=== PATIENT | male | born 1970 | race Caucasian/White ===

== ENCOUNTER 2023-07-16 09:06 | Outpatient (AMB) | payer BC, SELFPAY ==
[2023-07-16 09:11] VITALS: BP 118/76; PULSE 82; TEMP 36.7; O2SAT 97; BMI 25.9
--- NOTE | 2023-07-16 09:11 | AM.OFFWIN_ITS ---
Intake Vital Signs 07/16/23 09:11 Height 5 ft 8 in Weight 77.337 kg BMI 25.9 BP 118/76 Blood Pressure Location Rt brachial Position Sitting Pulse 82 Pulse Source Pulse Oximeter Temp 98.0 F Temp Source Temporal Artery Scan Pulse Oximetry (%) 97 Oxygen Delivery Method Room Air Intake Visit Reasons: [employer], laceration to chin due to fall at home Intake Note: pt is here for c/o open wound on chin due to fall Patient Tobacco Use Status: Never used Tobacco Allergies No Known Allergies Allergy (Verified 07/16/23 09:12) Do you need a note to return to daycare/school/sports/work: Yes HPI HPI Comments History of Present Illness Details 53-year-old male presents with laceration to chin status post trip and fall last night. Hitting his chin on a cabinet w/ subsequent laceration. Not on thinners no lOC . Denies headache, vision changes, jaw pain, nausea, vomiting, abdominal pain, chest pain, shortness of breath. No preceding symptoms to fall PE 5 cm large laceration w. SQ involment to l side lower chin very deep. Concerns for complex laceraiton. Unlikely ich stroke. Very close to the mandible ? contusion vs fx vs dislocation of facial bones Internal sutures would be needed to repair this laceration I do not have these available here. Also patient would benefit from imaging. Patient to go to [facility] to get higher level of care and suture repair. [facility] Social History Patient Tobacco Use Status: Never used Tobacco Review of Systems Const Details: Constitutional : No Fever, No Chills, Cardiovascular : No Chest Pain, No SOB Respiratory : No Dyspnea Gastrointestinal : No abdominal pain Musculoskeletal : No Joint Swelling Skin : No rash, positive skin laceration Neuro : No Weakness, No Numbness Psych : No SI/HI All systems reviewed & are unremarkable except as noted in HPI and below Physical Exam Vital Signs: Last Vital Signs Temp 98.0 F 07/16/23 09:11 Pulse 82 07/16/23 09:11 BP 118/76 07/16/23 09:11 Pulse Ox 97 07/16/23 09:11 Oxygen Delivery Method Room Air 07/16/23 09:11 BMI result Body Mass Index 25.9 vss Appearance: Alert.? Oriented X3.? No acute distress.? Head: Normocephalic, atraumatic, no step-offs or deformities Eyes: Pupils equal, round and reactive to light.? Neck: Normal inspection.? Neck supple.? CVS: Normal heart rate and rhythm.? Pulses normal.? Respiratory: No respiratory distress.? Skin: Skin warm and dry.? Normal skin color.? Normal skin turgor.?5 cm large laceration w. SQ involment to l side lower chin very deep. Extremities: 5/5 strength to bilateral upper and lower extremities Neuro: Oriented X 3.? No motor deficit.? No sensory deficit. CN 2-12 intact Assessment & Plan Assessment & Plan (1) Laceration of chin: Code(s): S01.81XA - Laceration without foreign body of other part of head, initial encounter Plan Take your medications as prescribed. If you were prescribed antibiotics today, it is important that you take your medication to their entirety, do not skip any doses, do not finish them early. Follow-up with your primary care provider this week. Return to the emergency department with new or worsening symptoms. In case of emergency call 911 Coding Level of Care Code Est Pt Level 3 (84016) Diagnoses Laceration of chin S01.81XA
== END 2023-07-16 10:53 | disposition home or self-care (01) ==
PROVIDERS: Visit Provider Physician Assistant
DX: S01.81XA Laceration without foreign body of other part of head, initial encounter (principal)
CPT/HCPCS: 99213

== ENCOUNTER 2023-07-23 09:09 | Outpatient (AMB) | payer BC, SELFPAY ==
--- NOTE | 2023-07-23 09:11 | MHC.OFFWIV ---
Intake Vital Signs 07/23/23 09:25 Height 5 ft 8 in BP 112/60 Blood Pressure Location Lt brachial Position Sitting Pulse 116 H Pulse Source Pulse Oximeter Temp 98.1 F Temp Source Temporal Artery Scan Pulse Oximetry (%) 97 Oxygen Delivery Method Room Air Intake Visit Reasons: EP rash on forehead spreading [id number] Intake Note: Pt is here requesting to get have nine stitches removed. Pt also states he injured his head and had a bump for two days and it has now spread. Patient Tobacco Use Status: Never used Tobacco Allergies Penicillins Allergy (Unknown, Verified 07/26/23 09:40) Unknown Do you need a note to return to daycare/school/sports/work: No HPI HPI Comments History of Present Illness Details Patient is a 53-year-old presents today for suture removal and rash to face He initially was seen urgent 1 week ago after a fall was sent to the emergency department for evaluation He had narrowing sutures placed on the inferior aspect of left chin He was also noted to have a facial abrasion to the left side of his forehead which was scabbed He states that the forehead scalp soft tissue days ago knees had increased redness and slight discharge from the area Was using a topical antifungal without relief; clotrimazole He denies any dizziness, lightheadedness, headaches visual changes He was told to have the sutures removed this weekend but decided to come in today on day 7 No other complaints like fever, chills, pain, drainage PFSH Social History Patient Tobacco Use Status: Never used Tobacco Advance Directives: No Advance Directives Information Provided: Yes Review of Systems Const Denies body aches, Denies chills and Denies fever(s) Eyes Denies blurry vision and Denies diplopia ENT Denies nasal trauma Musc Denies abnormal gait, Denies back pain and Denies myalgias Skin/Breast Reports erythema (L side forehead) and Reports other (sutures L side inferior chin) Neuro Denies abnormal gait Physical Exam Vital Signs: Last Vital Signs Temp 98.1 F 07/23/23 09:25 Pulse 116 H 07/23/23 09:25 BP 112/60 07/23/23 09:25 Pulse Ox 97 07/23/23 09:25 Oxygen Delivery Method Room Air 07/23/23 09:25 General: Non-toxic, NAD. Speaking full sentences. Skin: Warm dry throughout. L side anterior forehead he has circular patch of healing skin with slight erythema. No area of drainage, induration or fluctuance. L inferior aspect of chin has [address] There is slight wound dehiscence in middle/inferior aspect whch appears to still be healing. Minimal erythema without drainage or pain with palpation. Eye: EOMI Respiratory: No tachypnea Cardiac: RRR. MSK: Full ROM extremities. Neurology: A/O No aphasia or facial droop. Gait without abnormality Psych: Good mood and affect Assessment & Plan Assessment & Plan (1) Cellulitis: Code(s): L03.90 - Cellulitis, unspecified Qualifiers: Site of cellulitis: face Qualified Code(s): L03.211 - Cellulitis of face Plan: Area on L side forehead appears to be healing but since scab fell off and + redness, will cover with doxy Doxy also will help chin region heal (2) Visit for suture removal: Comment: verbal consent obtained. 4 sutures removed from L chin [address] and do not want to remove due to healing still and concern dehiscence. Code(s): Z48.02 - Encounter for removal of sutures Plan: Doxy with food as prescribed Come back friday am for removal of remaining Keep area clean and dry Avoid picking Call with concerns Medications: New doxycycline hyclate 100 mg PO BID 14 caps 0RF L03.90 - Cellulitis, unspecified Coding Level of Care Code Est Pt Level 3 (79956) Diagnoses Cellulitis of face L03. Site of cellulitis: face Visit for suture removal Z48.02
[2023-07-23 09:25] VITALS: BP 112/60; PULSE 116; TEMP 36.7; O2SAT 97
== END 2023-07-23 10:40 | disposition home or self-care (01) ==
PROVIDERS: Visit Provider Physician Assistant
DX: L03.211 Cellulitis of face (principal); Z48.02 Encounter for removal of sutures
CPT/HCPCS: 99213

== ENCOUNTER 2023-07-26 09:11 | Outpatient (AMB) | payer BC, SELFPAY ==
--- NOTE | 2023-07-26 09:12 | MHC.OFFWIV ---
Intake Intake Visit Reasons: EP allergic reaction to medcation face swollen! Patient Tobacco Use Status: Never used Tobacco Allergies No Known Allergies Allergy (Verified 07/23/23 09:12) HPI HPI Comments History of Present Illness Details 926 53-year-old male presents with concerns that his chin lacerations not healing, there has been yellow/green discharge from the area. Patient started on doxycycline on Friday, he took a few doses however he is noted periorbital edema, he does not have respiratory symptoms or difficulty breathing however he reports his eyes rapidly worsening. He initially sustained these injuries status post trip and fall into a cabinet on 07/16/2023, I advised him to go to hospital for repair of complicated laceration he states that the only put in superficial sutures at that time there is exposed subcu tissue very deep and concerns that the bone could have been exposed. He went to the hospital was not discharged with antibiotics and came back here on 07/23/2023 and started on doxycycline. He denies chest pain shortness of breath, nausea, vomiting, abdominal pain., difficulty with eye movement On exam evident bilateral periorbital edema, abrasion to forehead and nonhealing laceration with dehiscence to the chin. Concerns for infected laceration versus abscess versus possible osteomyelitis. Bilateral eye swelling is concerning for drug reaction. No signs of airway compromise no need for EpiPen at this time. I I did have a long conversation with patient and he tells me that he does not mind going to the hospital to be evaluated. I did discuss this case with Vickie MUNOZ [facility] Social History Patient Tobacco Use Status: Never used Tobacco Review of Systems Const Details: Constitutional : No Weight loss, No Fever, No Chills, No Fatigue, No Malaise ENT/Mouth : No sore throat, No Rhinorrhea Eyes: No Eye Pain, No Swelling, No Redness Cardiovascular : No Chest Pain, No SOB, No Dyspnea on Exertion, No Orthopnea, No Edema, No Palpitations Respiratory : No Cough, No Sputum, No Wheezing Gastrointestinal : No Nausea, No Vomiting, No Diarrhea, No Constipation, No abdominal Pain, No Hematochezia, No Melena Genitourinary : No Dysuria, No Urinary Frequency, No Hematuria, Musculoskeletal : No joint pain, No Myalgias, No Joint Swelling Skin : No Skin Lesions, No rash Neuro : No Weakness, No Numbness, No Dizziness, No Headache Psych : No Anxiety/Panic, No Depression All other systems reviewed and are negative All systems reviewed & are unremarkable except as noted in HPI and below Physical Exam Vital Signs: vss Appearance: Alert.? Oriented X3.? No acute distress.? Head: Normocephalic, atraumatic, no step-offs or deformities Eyes: Pupils equal, round and reactive to light.? Bilateral periorbital edema no pain with extraocular movements. Surrounding erythema ENT: Pharynx normal.? Neck: Normal inspection.? Neck supple.? CVS: Normal heart rate and rhythm.? Pulses normal.? Respiratory: No respiratory distress.? Breath sounds normal.? Abdomen: Soft and nontender.? Skin: Skin warm and dry.? Normal skin color.? Normal skin turgor.?+ large poorly healing skin laceration w/ purulence Extremities: No lower extremity edema.? No calf ttp. 5/5 strength to bilateral upper and lower extremities Neuro: Oriented X 3.? No motor deficit.? No sensory deficit. CN 2-12 intact Assessment & Plan Assessment & Plan (1) Periorbital edema of both eyes: Code(s): R60.0 - Localized edema (2) Allergic reaction: Code(s): T78.40XA - Allergy, unspecified, initial encounter Plan Patient to go [place] [facility]. Spoke to Vickie CATALAN Coding Level of Care Code Est Pt Level 3 (38419) Diagnoses Periorbital edema of both eyes R60.0 Allergic reaction T78.40XA
== END 2023-07-26 11:10 | disposition home or self-care (01) ==
PROVIDERS: Visit Provider Physician Assistant
DX: R60.0 Localized edema (principal); T78.40XA Allergy, unspecified, initial encounter
CPT/HCPCS: 99213

== ENCOUNTER 2023-07-26 09:37 | Emergency (ER) | payer BC, SELFPAY ==
--- NOTE | ~2023-07-26 | CT_ITS ---
EXAMINATION: CT FACIAL BONES WITH CONTRAST CLINICAL INFORMATION: wound dehiscence COMPARISON: None available. TECHNIQUE: Multidetector CT acquisition of the maxillofacial region is obtained after administration of 85 mL Omnipaque 350. Multiplanar reformats are acquired and utilized for image interpretation. This CT examination was performed using dose optimization techniques as appropriate, variously including the following: *Automated exposure control *Adjustment of mA and/or kV according to patient size (this includes techniques or standardized protocols for targeted exams where dose is matched to indication/reason for exam; i.e. extremities or head) *Use of iterative reconstruction technique DLP: 627.02 mGy-cm FINDINGS: There is diffuse skin thickening involving the neck anteriorly from the lateral the supraclinoid region and extending superiorly to the level of the mandible. There is a tiny focus of irregularity/defect involving the skin in the submental region, just left to midline (series 2, image 44 of 353). Diffuse inflammatory stranding is seen within the anterior neck subcutaneous tissues in these regions. There is also mild inflammatory stranding involving the premaxillary soft tissues with associated mild skin thickening. No discrete drainable tissue fluid collection. No erosive osseous changes. No pathologically enlarged lymph node in the neck. No periapical disease identified. Mucosal thickening of the bilateral maxillary sinuses with atelectasis of the left maxillary sinus. The remaining paranasal sinuses are clear. The major sinus drainage pathways remain patent. No polypoid soft tissue within the nasal cavities. Mild leftward deviation of the nasal septum. The fovea ethmoidalis and olfactory grooves are symmetric in depth. No orbital pathology. Partial opacification of the right mastoid air cells. The left mastoid air cells and bilateral middle air cavities are clear. CT/CT facial bones w IV con IMPRESSION: Diffuse skin thickening and inflammatory stranding involving the anterior neck and premaxillary soft tissues with suggestion of diffuse cellulitis. Tiny focus of irregularity/defect involving the skin in the submental region, just left to midline likely represent small open wound. No discrete drainable tissue fluid collection. No erosive osseous changes.
[2023-07-26 09:41] VITALS: BP 126/80; PULSE 90; RESP 18; TEMP 36.6; O2SAT 99; BMI 23.9
[2023-07-26 10:00] VITALS: PULSE 77; O2SAT 98
--- NOTE | 2023-07-26 10:04 | ED_ITS ---
<Statement entered by Santy Michael MD - 07/26/23 18:11> I saw this patient with the physician training and development assistant and agree with the plan. HPI - Allergic Reaction General Chief complaint: Allergic Reaction Stated complaint: allergy reaction Time Seen by Provider: 07/26/23 09:58 Source: patient and RN notes reviewed Mode of arrival: ambulatory Limitations: no limitations History of Present Illness HPI narrative: This is a 53-year-old male, with no known medical problems, presenting to the emergency department with facial swelling. On July 16, 2023, patient had a tripped and fell, striking his chin on a cabinet. He had a large laceration on his chin with his mandible exposed. He was evaluated at [place] urgent care where he was sent to [facility] where he had multiple sutures placed. Patient then returned to the urgent care on July 23 due to increased drainage from his laceration. He was placed on doxycycline 2 days ago. He states that last night he noticed that he had some swelling around both of his eyes, as well as a rash throughout his body. He states that he woke up this morning with worsening bilateral eye swelling and increased yellow drainage expressed from the wound. He has had no fevers or chills. He is otherwise feeling well. He also has an abrasion noted to his head - reports that this is from a trip and fall several weeks ago. No other complaints or concerns at this time. MD complaint: allergic reaction and facial swelling Exposure: medication Symptoms: itching and facial swelling Treatment prior to arrival: none Previous Allergic Reaction History: none Related Data Previous Rx's Medication Instructions Recorded doxycycline hyclate 100 mg capsule 100 mg PO BID #14 caps 07/23/23 prednisone 20 mg tablet 40 mg (2 x 20 mg) PO DAILY 5 days 07/26/23 #10 tabs sulfamethoxazole 800 2 tab PO BID 7 days #28 tabs 07/26/23 mg-trimethoprim 160 mg tablet (Bactrim DS) Allergies Allergy/AdvReac Type Severity Reaction Status Date / Time Penicillins Allergy Unknown Unknown Verified 07/26/23 09:40 Review of Systems 2 Review of Systems: Yes all other systems are reviewed and are negative Constitutional: Constitutional: Reports as per [facility] Social History Social History Patient Tobacco Use Status: Never used Tobacco Advance Directives: No Advance Directives Information Provided: Yes Physical Exam ED Vital Signs: Vital Signs - 24 hr 07/26/23 09:41 07/26/23 10:00 07/26/23 14:38 Temperature 97.8 F 98.4 F Pulse Rate 90 77 84 Respiratory Rate 18 20 Blood Pressure 126/80 141/94 H Pulse Oximetry 99 98 96 Oxygen Delivery Method Room Air Room Air Room Air BMI result Body Mass Index 23.9 Const General: cooperative, comfortable and no acute distress Orientation/consciousness: patient oriented x3 Limitations: no limitations HENMT Other: L inferior aspect of chin with ?[address], however appears to not holding wound together. There is slight wound dehiscence in middle/inferior aspect which appears to still be healing. Minimal purulence expressed from wound. Minimal erythema without drainage or pain with palpation. Forehead with ccrusting noted with superficial abrasion noted. Head: Yes normal to inspection, Yes normocephalic and Yes atraumatic Ears: hearing grossly normal bilaterally General nose exam: Normal external nose present Face and sinus: Yes normal facial exam Mouth: Normal oral and palatal mucosa present, oropharynx normal and moist mucous membranes Throat: Yes posterior oropharynx normal Eyes General: appearance normal, both eyes and all related structures Eyelids: Yes eyelids normal Conjunctivae: conjunctivae normal Sclerae: sclerae normal Pupils: Equal, round and reactive pupils present EOM: EOMs intact bilaterally Neck Neck: Yes normal visual inspection, Yes full ROM and Yes no lymphadenopathy Lymphatic: no lymphadenopathy noted Chest Chest palpation & inspection: normal inspection of the chest Resp Effort & Inspection: normal respiratory effort and able to speak in complete sentences Auscultation: clear to auscultation bilaterally, no crackles, no rales, no rhonchi and no wheezes Cardio Rate: regular rate Rhythm: regular rhythm Heart sounds: S1 normal heart sound present and S2 normal heart sound present GI Inspection: Yes normal to inspection Skin General skin exam: no rashes or lesions noted Trauma: no lacerations or abrasions Wounds: no wounds Neuro General: patient oriented x3 and moves all extremities Cranial nerves: Yes Equal, round and reactive pupils present Extrem General: Yes normal to inspection Right upper extremity: normal to inspection Left upper extremity: normal to inspection Right lower extremity: normal to inspection Left lower extremity: normal to inspection Course Reevaluation(s) Reevaluation #1: Patient re-evaluated, facial swelling does appear to be improved. Lactic acid 1.7, no leukocytosis, stable H&H, chemistry within normal limits, AST ALT mildly elevated, a CT still pending at this time. Time: 12:22 Reevaluation #2: CT returns revealing Diffuse skin thickening and inflammatory stranding involving the anterior neck and premaxillary soft tissues with suggestion of diffuse cellulitis. Tiny focus of irregularity/defect involving the skin in the submental region, just left to midline likely represent small open wound. No discrete drainable tissue fluid collection. No erosive osseous changes. Discussed with my attending physician, Dr. Michael, who recommends removing sutures that are no longer holding wound in placce and to place pt on Bactrim and prednisone. Discussed with pt. given return precautions. Pt understands and agrees with plan. stable for d/c. Medications Administered Discontinued Medications Generic Name Dose Route Start Last Admin Trade Name Freq PRN Reason Stop Dose Admin Diphenhydramine HCl 50 mg 07/26/23 10:02 07/26/23 10:58 Diphenhydramine Hcl 50 Mg/Ml Vial IVPUSH 07/26/23 10:03 50 mg ONCE ONE Administration Famotidine 20 mg 07/26/23 10:02 07/26/23 10:58 Famotidine/Pf 20 Mg/2 Ml Vial IVPUSH 07/26/23 10:03 20 mg ONCE ONE Administration Iohexol 85 ml 07/26/23 12:08 07/26/23 12:08 Iohexol 350 Mg/Ml 100 Ml Infus..Btl IV 07/26/23 12:09 85 ml ONCE ONE Administration Methylprednisolone Sodium Succinate 125 mg 07/26/23 10:02 07/26/23 10:58 Methylprednisolone Sod Succ 125 Mg/2 Ml Vial IVPUSH 07/26/23 10:03 125 mg ONCE ONE Administration Medical Decision Making Medical Decision Making MDM Narrative: This is a 53-year-old male, with no known medical problems, presenting to the emergency department complaints of facial swelling which started yesterday. On arrival, vital signs within normal limits. Patient has moderate lindy orbital edema and erythema. He also has scaling, redness, and crusting to his forehead. Lungs are clear to auscultation bilaterally, patient is nontoxic appearing under no acute respiratory distress. Given patient has laceration to his chin with purulence drainage, and mandible was exposed and was not on antibiotics upon his departure from [facility], concerning for osteomyelitis, will obtain CT maxillofacial for rule out. Patient states that he has a unknown allergy to penicillins, was told when he was a baby, unsure of the reaction. No other known drug allergies. Plan: Labs, IV Benadryl, Pepcid, Solu-Medrol, CT facial bones with IV contrast Differential Diagnosis Differential Diagnoses: The differential diagnosis associated with the presentation includes Angioedema, anaphylaxis, allergic reaction Admission/Observation Consideration of admission/observation: Escalation of care including admission/observation considered Lab Data MDM Lab Attestation statement: I reviewed the patient's lab results. see course 07/26/23 11:00 07/26/23 11:00 Labs: Lab Results 07/26/23 Range/Units 11:00 WBC 6.7 (4.8-10.8) X10*3/uL RBC 4.76 (4.60-5.80) X10*6/uL Hgb 14.8 (14.0-18.0) g/dl Hct 44.3 (42.0-52.0) % MCV 93.1 (80.0-98.0) fL MCH 31.1 (27.0-33.0) pg MCHC 33.4 (31.0-36.0) g/dl RDW 12.7 (11.0-16.0) % Plt Count 241 (160-400) X10*3/uL MPV 10.2 (9.4-12.4) fL Immature Gran % (Auto) 0.4 (0.0-0.4) % Neut % (Auto) 68.1 (45-73) % Lymph % (Auto) 17.1 L (20-40) % [place] % (Auto) 8.6 (2-11) % Eos % (Auto) 5.1 H (0-4) % Baso % (Auto) 0.7 (0-2) % Lymph # (Auto) 1.2 (1.2-4.9) X10*3/uL [place] # (Auto) 0.6 (0.1-1.2) X10*3/uL Eos # (Auto) 0.3 (0.0-0.4) X10*3/uL Baso # (Auto) 0.1 (0.0-0.2) X10*3/uL Abs Immat Gran (auto) 0.03 (0.00-0.03) X10*3/uL Absolute Neuts (auto) 4.6 (2.0-8.3) x10*3/uL Absolute Nucleated RBC 0.000 (0.0-0.012) X10*3/uL Nucleated RBC % (auto) 0.0 (0.0-0.2) /100WBC Sodium 142 (135-145) mmol/L Potassium 4.0 (3.3-5.1) mmol/L Chloride 108 (96-108) mmol/L Carbon Dioxide 25 (22-29) mmol/L Anion Gap 13 (12-20) BUN 15 (9-16) mg/dL Creatinine 0.87 (0.5-1.4) mg/dL Estim Creat Clear Calc 107.7 Estimated GFR > 60 Random Glucose 102 (60-115) mg/dL Lactic Acid 1.7 (0.5-2.0) mmol/L Calcium 9.8 (8.4-10.2) mg/dL Total Bilirubin 0.4 (0.0-1.0) mg/dL Direct Bilirubin 0.1 (0.0-0.5) mg/dL AST 68 H (5-37) U/L ALT 79 H (0-40) U/L Alkaline Phosphatase 55 (39-117) U/L Total Protein 7.4 (6.5-8.0) g/dL Albumin 4.3 (3.5-5.0) g/dL Radiology Impression Discussion of test interpretation with radiology: I have reviewed the radiologist's reading. Radiologist Impression: Diffuse skin thickening and inflammatory stranding involving the anterior neck and premaxillary soft tissues with suggestion of diffuse cellulitis. Tiny focus of irregularity/defect involving the skin in the submental region, just left to midline likely represent small open wound. No discrete drainable tissue fluid collection. No erosive osseous changes. Discharge Plan Discharge Clinical Impression: Cellulitis, Allergic reaction Patient Disposition: Home, Self-Care Instructions: Cellulitis (ED) Additional Instructions: Your seen in the emergency department after having a possible allergic reaction to doxycycline. You need to continue taking antibiotics to treat this skin infection you have. Finish the entire course even if your feeling better. I also am prescribing you prednisone, this is a steroid. Please start this tomorrow as you already received a dose of a similar medication today. You may also take Benadryl as directed as needed for symptoms and swelling. We removed your sutures today. Your labs are reassuring, your CT does show evidence of a skin infection therefore it is very important for you to take the antibiotic as prescribed. Watch for any new or worsening symptoms including but not limited to fevers, chills, redness, swelling. If any of these occur, or you develop any chest pain or shortness of breath, please return for re-evaluation. Prescriptions: New sulfamethoxazole-trimethoprim [Bactrim DS] 800-160 mg tablet 2 tab PO BID 7 Days Qty: 28 0RF prednisone 20 mg tablet 40 mg PO DAILY 5 Days Qty: 10 0RF No Action doxycycline hyclate 100 mg capsule 100 mg PO BID Qty: 14 0RF Interventions: ED Discharge Assessment Last Done: 07/26/23 15:27 Discharge Date/Time: 07/26/23 15:27
[2023-07-26] MEDS: methylPREDNISolone Sod Succ 125 MG/2 ML VIAL IVPUSH (10:58)
[2023-07-26] MEDS: diphenhydrAMINE HCL 50 MG/ML VIAL IVPUSH (10:58)
[2023-07-26] MEDS: Famotidine/PF 20 MG/2 ML VIAL IVPUSH (10:58)
[2023-07-26 11:07] LABS: MANUAL DIFF FLAG NO
[2023-07-26 11:08] LABS: Basophils Absolute Auto 0.1 X10*3/uL (0.0-0.2); Basophils Percent Auto 0.7 % (0-2); Eosinophils Absolute Auto 0.3 X10*3/uL (0.0-0.4); Eosinophils Percent Auto 5.1 % (0-4); Hematocrit 44.3 % (42.0-52.0); Hemoglobin 14.8 g/dl (14.0-18.0); Imm Gran Abs Auto 0.03 X10*3/uL (0.00-0.03); Imm Gran Pct Auto 0.4 % (0.0-0.4); Lymphocytes Absolute Auto 1.2 X10*3/uL (1.2-4.9); Lymphocytes Percent Auto 17.1 % (20-40); Mean Corpuscular HGB Conc 33.4 g/dl (31.0-36.0); Mean Corpuscular Hemoglobin 31.1 pg (27.0-33.0); Mean Corpuscular Volume 93.1 fL (80.0-98.0); Mean Platelet Volume 10.2 fL (9.4-12.4); Monocytes Absolute Auto 0.6 X10*3/uL (0.1-1.2); Monocytes Percent Auto 8.6 % (2-11); Neutrophils Absolute Auto 4.6 x10*3/uL (2.0-8.3); Neutrophils Percent Auto 68.1 % (45-73); Platelet Count 241 X10*3/uL (160-400); Red Blood Count 4.76 X10*6/uL (4.60-5.80); Red Cell Distribution Width 12.7 % (11.0-16.0); White Blood Count 6.7 X10*3/uL (4.8-10.8)
--- NOTE | 2023-07-26 11:15 | PC.NURSE ---
20g iv inserted LAC. meds given as documented. pt on bedside monitor, pt denies pain/throat tightening or sob. resting quietly, no apparent distress. will continue to observe.
[2023-07-26 11:18] LABS: Lactic Acid 1.7 mmol/L (0.5-2.0)
[2023-07-26 11:22] LABS: Alanine Aminotransferase 79 U/L (0-40); Albumin Level 4.3 g/dL (3.5-5.0); Alkaline Phosphatase 55 U/L (39-117); Anion Gap 13 (12-20); Aspartate Amino Transferase 68 U/L (5-37); Bilirubin Direct 0.1 mg/dL (0.0-0.5); Bilirubin Total 0.4 mg/dL (0.0-1.0); Blood Urea Nitrogen 15 mg/dL (9-16); Calcium 9.8 mg/dL (8.4-10.2); Carbon Dioxide 25 mmol/L (22-29); Chloride 108 mmol/L (96-108); Creatinine Clr Calc Pharmacy 107.7; Estimated Glomerular Filt Rate > 60; Glucose Random 102 mg/dL (60-115); Sodium 142 mmol/L (135-145); Total Protein 7.4 g/dL (6.5-8.0)
[2023-07-26] MEDS: iohexoL 350 MG/ML 100 ML INFUS..BTL 85 ML IV (12:08)
[2023-07-26 14:38] VITALS: BP 141/94; PULSE 84; RESP 20; TEMP 36.9; O2SAT 96
== END 2023-07-26 15:27 | disposition home or self-care (01) ==
PROVIDERS: Physician Assistant Medical; Emergency Provider Emergency Medicine
DX: L03.211 Cellulitis of face (principal); T78.40XA Allergy, unspecified, initial encounter; X58.XXXA Exposure to other specified factors, initial encounter; Z48.02 Encounter for removal of sutures
CPT/HCPCS: 36415; 70487; 80048; 80076; 83605; 85025; 87040; 96374; 96375; 99283; 99284; J1200; J2930; Q9967

== ENCOUNTER 2023-11-03 12:00 | Outpatient (AMB) | payer BC, SELFPAY ==
[2023-11-03 12:52] VITALS: BP 150/80; PULSE 47; TEMP 36.4; O2SAT 97; BMI 24.3
--- NOTE | 2023-11-03 12:52 | AM.OFFWIN_ITS ---
Intake Vital Signs 11/03/23 12:52 Height 6 ft Weight 179 lb BMI 24.3 BP 150/80 H Blood Pressure Location Lt brachial Position Sitting Pulse 47 L Pulse Source Pulse Oximeter Temp 97.6 F Temp Source Temporal Artery Scan Pulse Oximetry (%) 97 Oxygen Delivery Method Room Air Intake Visit Reasons: rash back and chest. Intake Note: is here today for rash on back and chest started 1 month ago Patient Tobacco Use Status: Never used Tobacco Allergies doxycycline Allergy (Mild, Verified 11/12/23 14:38) swelling Penicillins Allergy (Unknown, Verified 11/12/23 14:38) Unknown Medication List - Last Reconciled 11/12/23 by Devon Phillips MD clobetasol 0.05% 1 appl topical DAILY prednisone 10 mg PO DAILY HPI rash back and chest. HPI Details 53 yr old male presents to the office fo r a sick visit. He is reporting a rash for the past two weeks. Predominantly over the chest and the back. Moderate itching PFSH Social History Patient Tobacco Use Status: Never used Tobacco Physical Exam Vital Signs: Last Vital Signs Temp 97.6 F 11/03/23 12:52 Pulse 47 L 11/03/23 12:52 BP 150/80 H 11/03/23 12:52 Pulse Ox 97 11/03/23 12:52 Oxygen Delivery Method Room Air 11/03/23 12:52 BMI result Body Mass Index 24.3 Skin Other: Scattered multiple macular lesions with scales on the back and upper arms. Assessment & Plan Assessment & Plan (1) Psoriasis: Code(s): L40.9 - Psoriasis, unspecified Plan: Prednisone and clobetasol started. Pt has been offered a dermatology appt. BW has been ordered Orders: Orders Basic Metabolic Panel 11/03/23 L40.9 - Psoriasis, unspecified Complete Blood Count no Diff 11/03/23 L40.9 - Psoriasis, unspecified Liver Panel 11/03/23 L40.9 - Psoriasis, unspecified Erythrocyte Sedimentation Rate 11/03/23 L40.9 - Psoriasis, unspecified Referrals Dermatology Referral L40.9 - Psoriasis, unspecified Medications: New prednisone 10 mg PO DAILY 10 tabs 0RF clobetasol 0.05% 1 appl topical DAILY 30 grams 0RF Coding Level of Care Code Est Pt Level 4 (06590) Diagnoses Psoriasis L40.9
== END 2023-11-03 13:50 | disposition home or self-care (01) ==
PROVIDERS: Visit Provider Internal Medicine
DX: L40.9 Psoriasis, unspecified (principal)
CPT/HCPCS: 99214

== ENCOUNTER 2023-11-03 13:38 | Outpatient (REF) | payer BC, SELFPAY ==
[2023-11-03 16:25] LABS: Hematocrit 44.8 % (42.0-52.0); Hemoglobin 14.8 g/dl (14.0-18.0); Mean Corpuscular Hemoglobin 30.4 pg (27.0-33.0); Mean Platelet Volume 10.4 fL (9.4-12.4); Platelet Count 315 X10*3/uL (160-400); Red Blood Count 4.87 X10*6/uL (4.60-5.80); White Blood Count 8.5 X10*3/uL (4.8-10.8)
[2023-11-03 16:46] LABS: Alanine Aminotransferase 67 U/L (0-40); Albumin Level 4.6 g/dL (3.5-5.0); Alkaline Phosphatase 58 U/L (39-117); Anion Gap 18 (12-20); Aspartate Amino Transferase 34 U/L (5-37); Bilirubin Direct 0.3 mg/dL (0.0-0.5); Bilirubin Total 0.7 mg/dL (0.0-1.0); Blood Urea Nitrogen 17 mg/dL (9-16); Calcium 9.7 mg/dL (8.4-10.2); Carbon Dioxide 25 mmol/L (22-29); Chloride 105 mmol/L (96-108); Estimated Glomerular Filt Rate > 60; Glucose Random 79 mg/dL (60-115); Potassium 3.7 mmol/L (3.3-5.1); Sodium 144 mmol/L (135-145); Total Protein 7.6 g/dL (6.5-8.0)
[2023-11-03 17:01] LABS: Erythrocyte Sedimentation Rate 7 MM/HR (0-15)
== END 2023-11-03 13:39 | disposition home or self-care (01) ==
LOC: HO.HMGCLDS 13:38
PROVIDERS: Visit Provider Internal Medicine
DX: L40.9 Psoriasis, unspecified (principal)
CPT/HCPCS: 36415; 80048; 80076; 85027; 85652